=== PATIENT | male | born 1990 | race Hispanic/Latino ===

== ENCOUNTER 2023-11-05 19:36 | Emergency (ER) | payer OTHER ==
[~2023-11-05] VITALS: Ht 172.7 cm; Wt 116.5 kg
[2023-11-05] MEDS ORDERED: MAXITROL EYE DRO5 ML OPTH (20:23)
[2023-11-05 20:29] VITALS: BP 142/84
[2023-11-05] MEDS ORDERED: NEOMYCIN/POLYMYXIN/DEXAMETH OPTH SUSPENSION BOTTLE OS ONE (20:30)
== END 2023-11-05 20:35 | disposition home or self-care (01) ==
LOC: ED 19:36
DX: H11.422 Conjunctival edema, left eye (principal)
CPT/HCPCS: 99283